=== PATIENT | male | born 1985 | race Hispanic/Latino ===

== ENCOUNTER 2018-10-03 20:45 | Emergency (ER) | payer SELFPAY ==
--- NOTE | 2018-10-03 22:56 | ER ---
Nurse's Notes [facility] Name: Hudson Maharaj Age: 32 yrs Sex: Male : 1985 Arrival Date: 10/03/2018 Time: 20:53 Bed 27 Private MD: Diagnosis: Unspecified injury of head;Alcohol abuse Presentation: 10/03 20:53 Presenting complaint: states: He was at a bar and they said he fell backwards and la1 hit the back of his head. Witnesses states positive LOC. PT smells of ETOH, speech is slurred. Pt is verbally aggressive and posturing with closed fists at staff. Code rider called. Pt uncooperative with staff for triage. Transition of care: patient was not received from another setting of care. Onset of symptoms was October 03, 2018. Risk Assessment: Do you want to hurt yourself or someone else? Unable to obtain. Initial Sepsis Screen:. 20:53 Method Of Arrival: Ambulatory la1 20:53 Acuity: KRISHAN 2 la1 23:04 Initial Sepsis Screen: Does the patient meet any 2 criteria? No. Patient's initial rv sepsis screen is negative. Does the patient have a suspected source of infection? No. Patient's initial sepsis screen is negative. Care prior to arrival: None. Triage Assessment: 23:03 General: Appears in no apparent distress. Behavior is combative. Pain: Denies pain. rv Historical: - Allergies: 21:25 No Known Allergies; bb - Home Meds: 21:25 None [Active]; bb - PMHx: 21:25 None; bb - PSHx: 21:25 Unable to obtain; bb - Immunization history:: Adult Immunizations unknown. - Social history:: Smoking status: unknown Patient uses alcohol, patient/guardian reports recent binge of alcohol consumption. - Ebola Screening: : No symptoms or risks identified at this time. Screenin:29 Abuse screen: Denies threats or abuse. Nutritional screening: No deficits noted. bb Tuberculosis screening: No symptoms or risk factors identified. Fall Risk Fall in past 12 months (25 points). Secondary diagnosis (15 points) positive for ETOH. Mental Status- Overestimates/Forgets Limitations (15 pts.). 21:29 Fall Risk Total Smith Fall Scale indicates High Risk Score (45 or more points). Fall bb prevention measures have been instituted. Side Rails Up X 2 Family Present and informed to notify staff if the need to leave the bedside As available patient and family educated on Fall Prevention Program and Strategies. Assessment: 21:28 Reassessment: pt extremely uncooperative, belligerent, yelling at the staff, refusing bb care, was taken to CT via stretcher accompanied by this RN, Ab MURPHY, and spouse. Pt tolerated CT poorly. 23:02 Reassessment: Patient appears in no apparent distress at this time. patient is rv combative. refused to do further work up. decided to go home. ISAAC Lopez explained to the and the patient the result of the CT scan. 23:04 Reassessment: patient refused to have another set of vital signs taken. rv Vital Signs: 21:25 BP 124 / 87; Pulse 139; Resp 18 S; Pulse Ox 92% on R/A; Weight 117.93 kg (R); Height 5 bb ft. 4 in. (162.56 cm) (R); 21:25 Body Mass Index 44.63 (117.93 kg, 162.56 cm) bb Armond Coma Score: 22:30 Eye Response: spontaneous(4). Verbal Response: oriented(5). Motor Response: obeys pm1 commands(6). Total: 15. ED Course: 20:53 Patient arrived in ED. bb 20:55 Triage completed. la1 20:59 Damián Gr NP is PHCP. pm1 20:59 Dominick Duran MD is Attending Physician. pm1 21:10 Note: CT HEAD COMPLETED, C-SPINE CANCELLED. PT VERY UNCOOPERATIVE AND COMBATIVE. mw3 DAMIÁN CUSTOMER SERVICE COORDINATOR NOTIFIED. . 21:25 Arm band placed on. bb 21:29 Patient has correct armband on for positive identification. Call light in reach. Side bb rails up X2. Adult w/ patient. 22:45 Kendall Fernandez, KATHERINE is Primary Nurse. rv 23:04 No provider procedures requiring assistance completed. Patient did not have IV access rv during this emergency room visit. Administered Medications: No medications were administered Outcome: 23:05 AMA AMA form signed rv 23:05 Condition: good 23:05 Patient left the ED. rv Signatures: Dispatcher [employer] EDMS Rebecca Petersen RN RN bb Attema, Lee, RN RN la1 Damián Gr CUSTOMER SERVICE COORDINATOR CUSTOMER SERVICE COORDINATOR pm1 Millicent Douglass mw3 Kendall Fernandez, RN RN rv Corrections: (The following items were deleted from the chart) 22:02 21:42 In radiology for Head Brain Wo Cont. EDMS mw3
--- NOTE | 2018-10-03 22:56 | EDPHYS ---
Physician Documentation [facility] Name: Hudson Maharaj Age: 32 yrs Sex: Male : 1985 Arrival Date: 10/03/2018 Time: 20:53 Bed 27 Private MD: ED Physician Dominick Duran HPI: 10/03 22:30 This 32 yrs old Male presents to ER via Ambulatory with complaints of head pm1 injury. 22:30 The patient or guardian reports injury. The complaints affect the back of head. Context pm1 of injury: The problem was sustained at a bar or nightclub, resulted from fall from bar stool. Onset: The symptoms/episode began/occurred just prior to arrival. Associated signs and symptoms: Loss of consciousness: This patient experience a loss of consciousness, for an unknown period of time, Pertinent positives: patient admits to or smells of alcohol consumption, Pertinent negatives: nausea, neck pain, vomiting. Severity of symptoms: in the emergency department the symptoms have improved. The patient has not experienced similar symptoms in the past. The patient has not recently seen a physician. Patient at bar and fell off stool and hit the back of his head. Positive LOC. Patient does not want to be here but he was brought in by who would like him to be evaluated. Historical: - Allergies: 21:25 No Known Allergies; bb - Home Meds: 21:25 None [Active]; bb - PMHx: 21:25 None; bb - PSHx: 21:25 Unable to obtain; bb - Immunization history:: Adult Immunizations unknown. - Social history:: Smoking status: unknown Patient uses alcohol, patient/guardian reports recent binge of alcohol consumption. - Ebola Screening: : No symptoms or risks identified at this time. ROS: 22:30 Constitutional: Negative for fever, chills, and weight loss, Eyes: Negative for injury, pm1 pain, redness, and discharge, ENT: Negative for injury, pain, and discharge, Neck: Negative for injury, pain, and swelling, Cardiovascular: Negative for chest pain, palpitations, and edema, Respiratory: Negative for shortness of breath, cough, wheezing, and pleuritic chest pain, Abdomen/GI: Negative for abdominal pain, nausea, vomiting, diarrhea, and constipation, Back: Negative for injury and pain, : Negative for injury, bleeding, discharge, and swelling, MS/Extremity: Negative for injury and deformity, Skin: Negative for injury, rash, and discoloration. 22:30 Neuro: Positive for loss of consciousness, Negative for numbness, tingling, weakness. Exam: 22:30 Constitutional: This is a well developed, well nourished patient who is awake, alert, pm1 and in no acute distress. Head/Face: Normocephalic, atraumatic. Eyes: Pupils equal round and reactive to light, extra-ocular motions intact. Lids and lashes normal. Conjunctiva and sclera are non-icteric and not injected. Cornea within normal limits. Periorbital areas with no swelling, redness, or edema. ENT: Nares patent. No nasal discharge, no septal abnormalities noted. Tympanic membranes are normal and external auditory canals are clear. Oropharynx with no redness, swelling, or masses, exudates, or evidence of obstruction, uvula midline. Mucous membranes moist. Neck: Trachea midline, no thyromegaly or masses palpated, and no cervical lymphadenopathy. Supple, full range of motion without nuchal rigidity, or vertebral point tenderness. No Meningismus. Chest/axilla: Normal chest wall appearance and motion. Nontender with no deformity. No lesions are appreciated. Cardiovascular: Regular rate and rhythm with a normal S1 and S2. No gallops, murmurs, or rubs. Normal PMI, no JVD. No pulse deficits. Respiratory: Lungs have equal breath sounds bilaterally, clear to auscultation and percussion. No rales, rhonchi or wheezes noted. No increased work of breathing, no retractions or nasal flaring. Abdomen/GI: Soft, non-tender, with normal bowel sounds. No distension or tympany. No guarding or rebound. No evidence of tenderness throughout. Back: No spinal tenderness. No costovertebral tenderness. Full range of motion. Skin: Warm, dry with normal turgor. Normal color with no rashes, no lesions, and no evidence of cellulitis. MS/ Extremity: Pulses equal, no cyanosis. Neurovascular intact. Full, normal range of motion. 22:30 Neuro: Orientation: is normal, Motor: is normal, moves all fours. 22:30 Psych: Behavior/mood is aggressive, uncooperative, Affect is animated. Vital Signs: 21:25 BP 124 / 87; Pulse 139; Resp 18 S; Pulse Ox 92% on R/A; Weight 117.93 kg (R); Height 5 bb ft. 4 in. (162.56 cm) (R); 21:25 Body Mass Index 44.63 (117.93 kg, 162.56 cm) bb Armond Coma Score: 22:30 Eye Response: spontaneous(4). Verbal Response: oriented(5). Motor Response: obeys pm1 commands(6). Total: 15. MDM: 20:59 Patient medically screened. pm1 22:30 Data reviewed: vital signs. pm1 22:53 Counseling: I had a detailed discussion with the patient and/or guardian regarding: pm1 radiology results. 22:53 Refusal of service: The patient/guardian displays adequate decision making capability pm1 and despite a detailed discussion of alternatives, benefits, risks, and consequences refuses: all lab tests, Medications, CT scan of cervical spine. 22:53 ED course: is with the patient at bedside and would like to go home following CT pm1 head results. The patient does not want any further work up and she agrees with his decision since he is unwilling to get further test. 10/03 21:04 Order name: EKG - Nurse/Tech pm1 10/03 21:23 Order name: Head Brain Wo Cont EDMS 10/03 21:04 Order name: IV Saline Lock pm1 10/03 21:04 Order name: Labs collected and sent pm1 10/03 21:04 Order name: Urine Dipstick-Ancillary (obtain specimen) pm1 Administered Medications: No medications were administered Disposition: 10/04 01:25 Co-signature as Attending Physician, Dominick Duran MD. pkl Disposition: 10/03/18 22:55 Patient has left against medical advice. Impression: Unspecified injury of head, Alcohol abuse. - Patients states they are going to Home. - Condition is Undetermined. - Discharge Instructions: Finding Treatment for Addiction, Head Injury, Adult, Alcohol Abuse and Nutrition. Follow up: Emergency Department; When: As needed; Reason: Worsening of condition, Recheck today's complaints, Continuance of care, Re-evaluation by your physician. Follow up: Private Physician; When: Upon discharge from the Emergency Department; Reason: Recheck today's complaints, Continuance of care, Re-evaluation by your physician. - Problem is new. - Symptoms have improved. Signatures: Dispatcher [employer] EDRI Dominick Duran MD MD pkl Rebecca Petersen, RN RN bb John Gr, MARKETING ASSISTANT MARKETING ASSISTANT pm1 Kendall Fernandez, KATHERINE RN rv Corrections: (The following items were deleted from the chart) 10/03 21:23 21:07 Head C Spine MPR Wo Con+CT.RAD.BRZ ordered. [facility] EDRI 23:05 22:55 10/03/2018 22:55 Patients has left against medical advice. Impression: rv Unspecified injury of head; Alcohol abuse. Patient states they are going to Home. Condition is Undetermined. Follow up: Emergency Department; When: As needed; Reason: Worsening of condition, Recheck today's complaints, Continuance of care, Re-evaluation by your physician. Follow up: Private Physician; When: Upon discharge from the Emergency Department; Reason: Recheck today's complaints, Continuance of care, Re-evaluation by your physician. Problem is new. Symptoms have improved. pm1
[2018-10-03] MEDS ORDERED: IBUPROFEN 400 MG TAB ONE (23:02)
--- NOTE | 2018-10-04 10:40 | RAD REPORT ---
EXAM DESCRIPTION: CT of the head without contrast CLINICAL HISTORY: Head injury, LOC, ETOH COMPARISON: None available TECHNIQUE: Axial CT of the head obtained from the skull apex to the skull base without contrast. Att empt made to obtain images of the cervical spine however the patient was combative. The images obtain ed are nondiagnostic. FINDINGS: No acute intracranial hemorrhage identified. No mass, mass effect, shift of the midline, a bnormal extra-axial fluid collection or CT evidence of acute ischemic change identified. The ventricu lar system is unremarkable. No acute abnormalities of the supratentorial white matter, basal gangli a, cerebellum, or brainstem. The visualized paranasal sinuses and the mastoids are clear. No skull fracture identified. Visualized orbits and globes are unremarkable. Axial CT images of the cervical spine were obtained however these are nondiagnostic due to severe mot ion artifact. DLP: 1407.4 mGy-cm IMPRESSION: 1. No acute intracranial abnormality identified. 2. Attempted imaging of the cervical spine is nondiagnostic due to severe motion artifact and repor shayna patient combativeness. Repeat CT of the cervical spine would be required to evaluate for acute tr aumatic injury of the cervical spine. This exam was performed according to our departmental dose-optimization program, which includes autom ated exposure control, adjustment of the mA and/or kV according to patient size and/or use of iterati ve reconstruction technique. Electronically signed by: Kobe Hutton 10/03/2018 10:08 PM CDT Due to temporary technical issues with the PACS/Fluency reporting system, reports are being signed by the in house radiologist as a courtesy to ensure prompt reporting. The interpreting radiologist is f ully responsible for the content of the report.
== END 2018-10-03 23:05 | disposition left against medical advice (07) ==
LOC: ER 20:45
DX: F10.10 Alcohol abuse, uncomplicated (principal)
CPT/HCPCS: 70450; 99284

== ENCOUNTER 2024-03-29 06:46 | Emergency (ER) | payer OTHER, SELFPAY ==
--- OUTSIDE RECORDS SUMMARY | 2024-03-29 06:49 | XMS REPORT | Continuity of Care Document ---
Author Name Unknown Address [address] [place] [address] [employer] Address [address] [place] [address] Care Team Providers Care Turkey Pinner Name Role Phone ALICE Attending Clinician Unavailable ALICE Admitting Clinician Unavailable Encounters Start Date/Time End Date/Time Encounter Type Admission Type Attending Clinicians Care Facility Care Department Encounter ID Source 2021-11-19 04:45:00 2021-11-19 04:45:00 Outpatient [facility] [id number] Clari dugan [facility] Program
[2024-03-29] MEDS ORDERED: KETOROLAC 30 MG/ML INJ ONE (07:25)
[2024-03-29 07:34] LABS: Absolute Eosinophils 0.2 K/uL (0-0.5); Absolute Lymphocytes (CBC) 2.3 K/uL (0.7-4.9); Absolute Monocytes 0.4 K/uL (0.1-1.3); Absolute Neutrophil 4.9 K/uL (1.8-8.0); Basophils % 0.4 % (0-1.3); Eosinophils % 2.6 % (0-4.4); Hematocrit 46.3 % (39.6-49.0); Hemoglobin 15.2 g/dL (13.6-17.9); Lymphocytes % 29.6 % (15.3-44.8); MCH 27.3 pg (27.0-35.0); MCHC 32.9 g/dL (32.0-36.0); MCV 82.8 fL (80-100); MPV 8.4 fL (7.6-11.3); Monocytes % 5.1 % (3.3-12.3); Neutrophils % 62.3 % (41.7-73.7); Nucleated Red Blood Cells % 0.1 % (0-0); Platelets 282 thou/uL (152-406); RBC Red Blood Cell Count 5.59 M/uL (4.33-5.43); Red Cell Distribution Width 14.3 % (12.1-15.2)
--- NOTE | 2024-03-29 07:47 | RAD REPORT ---
EXAMINATION: US RIGHT LOWER EXTREMITY VENOUS DOPPLER CLINICAL INDICATION: PAIN RIGHT TECHNIQUE: Complete bilateral duplex sonography of the RIGHT lower extremity veins was performed. The examination included compression for vein patency, color Doppler imaging and flow augmentation in response to distal compression of the distal external iliac, common femoral, femoral, popliteal, tibi al, and great and small saphenous veins. COMPARISON: No prior exam. FINDINGS: Duplex sonography testing of the veins of the RIGHT lower extremity was performed. Color flow imaging shows all veins to be compressible with [id number] color filling. Pulsatile and phasic flow is present within all lower extremity deep and superficial veins examined. IMPRESSION: There is no deep vein or superficial vein thrombosis.
[2024-03-29 07:49] LABS: Specific Gravity > 1.030 (1.005-1.030); Sqamous Epithelial None Seen /HPF (None Seen); Urine Bacteria None Seen /HPF (<20); Urine Bilirubin NEGATIVE (Negative); Urine Blood Negative (Negative); Urine Clarity Clear (Clear); Urine Color Light-Yellow (Yellow); Urine Culture Reflex Order NOT NEEDED; Urine Glucose 4+ (Over) (Negative); Urine Ketones NEGATIVE (Negative); Urine Microscopic Reflex YN ORDER UMIC; Urine Nitrite NEGATIVE (Negative); Urine Protein NEGATIVE (Negative); Urine RBC <5 /HPF (None Seen); Urine Urobilinogen Normal (Normal); Urine WBC <5 /HPF (<5)
[2024-03-29 07:52] LABS: Albumin 3.4 g/dL (3.4-5.0); Albumin/Globulin Ratio 0.9 (1.1-1.8); Bilirubin Total 0.5 mg/dL (0.2-1.0); Protein, Total 7.4 g/dL (6.4-8.2)
--- NOTE | 2024-03-29 08:29 | RAD REPORT ---
EXAMINATION: CT ABDOMEN AND PELVIS WITH CONTRAST CLINICAL INDICATION: lower abd pain, radiates right groin TECHNIQUE: CT abdomen and pelvis was performed, after the administration of IV contrast, as [facility]. Axial, sagittal and coronal reconstructions were obtained. One or more of the following dose reduction techniques were used: Automated exposure control, adjustment of the mA and k V according to patient size, and iterative reconstruction. Unless otherwise specified, incidental findings do not require dedicated imaging follow-up. COMPARISON: No prior exam. FINDINGS: LOWER CHEST: The visualized lung bases are clear. LIVER: Mild fatty liver is present. No focal lesion or biliary dilatation is seen. Grossly unremark able gallbladder. SPLEEN: Normal size. No focal lesion. PANCREAS: No mass, ductal dilation, or harley-pancreatic fluid. ADRENALS: Normal; no mass. KIDNEYS: Normal size and contour. No hydronephrosis. GASTROINTESTINAL TRACT: No evidence of free air, significant intra-abdominal free fluid, bowel obstru ction or abscess. There is mild diverticulosis coli of the sigmoid colon without diverticulitis. APPENDIX: Normal appendix. LYMPH NODES: No lymphadenopathy. MUSCULOSKELETAL: Moderate thoracolumbar scoliosis. ADDITIONAL FINDINGS: None. IMPRESSION: No acute or concerning abnormalities seen in the abdomen or pelvis.
--- NOTE | 2024-03-29 08:56 | ER ---
Nurse's Notes [facility] Name: Hudson Maharaj Age: 38 yrs Sex: Male : 1985 Arrival Date: 03/29/2024 Time: 06:46 Bed 18 Private MD: Diagnosis: Radiculopathy, lumbosacral region;Groin pain Presentation: 03/29 06:49 Chief complaint: Patient states: sudden onset of pain on the side of groin. ha1 06:49 Coronavirus screen: Vaccine status: Patient reports being unvaccinated. Ebola Screen: ha1 No symptoms or risks identified at this time. Initial Sepsis Screen: Does the patient meet any 2 criteria? No. Patient's initial sepsis screen is negative. Does the patient have a suspected source of infection? No. Patient's initial sepsis screen is negative. Risk Assessment: Do you want to hurt yourself or someone else? Patient reports no desire to harm self or others. Onset of symptoms was March 29, 2024. 06:49 Method Of Arrival: Ambulatory 1 06:49 Acuity: KRISHAN 3 ha1 Triage Assessment: 06:49 General: Appears uncomfortable, Behavior is cooperative. Pain: Complains of pain in ha1 groin Pain does not radiate. Pain currently is 6 out of 10 on a pain scale. Quality of pain is described as aching, heavy, pressure, Pain began suddenly. Neuro: Level of Consciousness is awake, alert, obeys commands, Oriented to person, place, time, situation. Cardiovascular: Capillary refill < 3 seconds Patient's skin is warm and dry. Respiratory: Airway is patent Respiratory effort is even, unlabored, Respiratory pattern is regular, symmetrical. GI: Abdomen is round non-distended, obese. Historical: - Allergies: 07:01 No Known Allergies; ha1 - PMHx: 07:01 Diabetes mellitus; ha1 - Immunization history:: Adult Immunizations not up to date. - Infectious Disease History:: Denies. - Social history:: Smoking status: Patient reports the use of cigarette tobacco products, smokes one-half pack cigarettes per day. - Family history:: not pertinent. - Hospitalizations: : No recent hospitalization is reported. Screenin:28 [facility] ED Fall Risk Assessment (Adult) History of falling in the last 3 months, db including since admission No falls in past 3 months (0 pts) Confusion or Disorientation No (0 pts) Intoxicated or Sedated No (0 pts) Impaired Gait No (0 pts) Mobility Assist Device Used No (0 pt) Altered Elimination No (0 pt) Score/Fall Risk Level 0 - 2 = Low Risk Oriented to surroundings, Maintained a safe environment. Abuse screen: Denies threats or abuse. Denies injuries from another. Nutritional screening: No deficits noted. Tuberculosis screening: No symptoms or risk factors identified. Assessment: 07:04 Reassessment: Patient appears in no apparent distress at this time. Patient and/or db family updated on plan of care and expected duration. Pain level reassessed. Patient is alert, oriented x 3, equal unlabored respirations, skin warm/dry/pink. General: Appears in no apparent distress. comfortable, Behavior is calm, cooperative. Neuro: Level of Consciousness is awake, alert, obeys commands, Oriented to person, place, time, situation. 09:15 Reassessment: Patient appears in no apparent distress at this time. Patient and/or db family updated on plan of care and expected duration. Pain level reassessed. Patient is alert, oriented x 3, equal unlabored respirations, skin warm/dry/pink. Reassessment: Patient states feeling better. Patient states symptoms have improved. General: Appears in no apparent distress. comfortable, Behavior is calm, cooperative. Respiratory: Airway is patent Respiratory effort is even, unlabored, Respiratory pattern is regular, symmetrical. Vital Signs: 06:49 BP 122 / 84; Pulse 64; Resp 17 S; Temp 97.1(T); Pulse Ox 100% on R/A; Weight 108.86 kg; ha1 Height 5 ft. 4 in. ; Pain 6/10; 08:53 BP 126 / 72; Pulse 67; Resp 16; Pulse Ox 99% on R/A; db 06:49 Body Mass Index 41.20 (108.86 kg, 162.56 cm) ha1 06:49 Pain Scale: Adult ha1 ED Course: 06:47 Patient arrived in ED. jj6 06:55 Caroline Weinberg, RN is Primary Nurse. kj2 06:57 Dutch Kelly MD is Attending Physician. rn 07:01 Triage completed. ha1 07:04 Arm band placed on Patient placed in an exam room. db 07:24 Initial lab(s) drawn, by me, sent to lab. Inserted saline lock: 20 gauge in right db antecubital area, using aseptic technique. Blood collected. Flushed with 10 mL NS. 07:28 Patient has correct armband on for positive identification. Bed in low position. Call db light in reach. Side rails up X 1. Pulse ox on. NIBP on. Warm blanket given. 07:31 Patient taken to ultrasound. via wheelchair. db 07:43 Extremity Venous Uni Ltd US In Process Unspecified. EDMS 08:15 CT Abd/Pelvis - IV Contrast Only In Process Unspecified. EDMS 09:15 Provided Education on: DISCHARGE AND FOLLOWUP. db 09:15 No provider procedures requiring assistance completed. IV discontinued, intact, db bleeding controlled, No redness/swelling at site. Administered Medications: 07:30 Drug: TORadol - Ketorolac IVP 15 mg IVP once Route: IVP; Site: right antecubital; db 09:03 Follow up: Response: No adverse reaction; Pain is decreased db Medication: 09:15 VIS not applicable for this client. db Outcome: 08:56 Discharge ordered by . rn 09:15 Discharged to home ambulatory, with family, db 09:15 Condition: stable 09:15 Discharge instructions given to patient, family, significant other, Instructed on discharge instructions, follow up and referral plans. 09:15 Prescriptions given X 1, db 09:16 Patient left the ED. db Signatures: Dispatcher [employer] EDMS Dutch Kelly MD MD rn Jeffries, Jennifer jj6 Anya Kelsey RN RN ha1 Alicia Mccollum RN RN db Caroline Weinberg RN RN kj2
--- NOTE | 2024-03-29 08:56 | EDPHYS ---
Physician Documentation [facility] Name: Hudson Maharaj Age: 38 yrs Sex: Male : 1985 Arrival Date: 03/29/2024 Time: 06:46 Bed 18 Private MD: ED Physician Dutch Kelly HPI: 03/29 08:51 This 38 yrs old Male presents to ER via Ambulatory with complaints of Groin rn Pain. 08:51 The patient presents with pain. The complaints affect the right inner thigh. rn 08:52 Onset: The symptoms/episode began/occurred this morning. Modifying factors: The rn symptoms are alleviated by nothing. the symptoms are aggravated by movement. Severity of symptoms: At their worst the symptoms were moderate, in the emergency department the symptoms have improved. The patient has not experienced similar symptoms in the past. The patient has not recently seen a physician. Gout patient reports right groin pain that began this morning. Denies injury or trauma. Got up from seated position and started to have pain. Denies any skin changes or warmth. No fever or chills. No other trouble with right lower extremity other than chronic sciatica on that side. Denies urinary symptoms. Denies testicular pain or swelling. Did report mild right-sided abdominal pain yesterday but got better on its own.. Historical: - Allergies: 07:01 No Known Allergies; ha1 - PMHx: 07:01 Diabetes mellitus; ha1 - Immunization history:: Adult Immunizations not up to date. - Infectious Disease History:: Denies. - Social history:: Smoking status: Patient reports the use of cigarette tobacco products, smokes one-half pack cigarettes per day. - Family history:: not pertinent. - Hospitalizations: : No recent hospitalization is reported. ROS: 08:52 Constitutional: Negative for fever, chills, and weight loss, Cardiovascular: Negative rn for chest pain, palpitations, and edema, Respiratory: Negative for shortness of breath, cough, wheezing, and pleuritic chest pain, Abdomen/GI: Negative for abdominal pain, nausea, vomiting, diarrhea, and constipation, MS/Extremity: + right groin pain Skin: Negative for injury, rash, and discoloration, Neuro: Negative for headache, weakness, numbness, tingling, and seizure, Exam: 08:52 Constitutional: This is a well developed, well nourished patient who is awake, alert, rn and in no acute distress. Cardiovascular: Regular rate and rhythm. No pulse deficits. Respiratory: No increased work of breathing, no retractions or nasal flaring. Abdomen/GI: soft, non-tender, no hernia or mass MS/ Extremity: Pulses equal, no cyanosis. Neuro: Awake and alert, GCS 15, oriented to person, place, time, and situation. Motor strength 5/5 in all extremities. Sensory grossly intact. Normal gait. Vital Signs: 06:49 BP 122 / 84; Pulse 64; Resp 17 S; Temp 97.1(T); Pulse Ox 100% on R/A; Weight 108.86 kg; ha1 Height 5 ft. 4 in. ; Pain 6/10; 08:53 BP 126 / 72; Pulse 67; Resp 16; Pulse Ox 99% on R/A; db 06:49 Body Mass Index 41.20 (108.86 kg, 162.56 cm) ha1 06:49 Pain Scale: Adult ha1 MDM: 06:57 Medical Screening Exam initiated rn 08:52 Differential diagnosis: Hernia, radiculopathy, pinched nerve, neuropathy, early rn cellulitis. Data reviewed: vital signs, nurses notes, lab test result(s), radiologic studies, CT scan, ultrasound, and as a result, I will discharge patient. Counseling: I had a detailed discussion with the patient and/or guardian regarding the historical points, exam findings, and any diagnostic results supporting the discharge/admit diagnosis, lab results, radiology results, the need for outpatient follow up, to return to the emergency department if symptoms worsen or persist or if there are any questions or concerns that arise at home. Special discussion: I discussed with the patient/guardian in detail that at this point there is no indication for admission to the hospital. It is understood, however, that if the symptoms persist or worsen the patient needs to return immediately for re-evaluation. ED course: No acute findings and workup. CT abdomen pelvis without acute finding. Ultrasound right lower extremity negative for DVT. No signs of infection clinically. Normal WBC. Will discharge home as possible radiculopathy or pinched nerve. Will give gabapentin and return precautions.. 03/29 07:18 Order name: CBC with Diff; Complete Time: 08:45 rn 03/29 07:18 Order name: CMP; Complete Time: 08:45 rn 03/29 07:18 Order name: Lipase; Complete Time: 08:45 rn 03/29 07:18 Order name: Urinalysis w/ reflexes; Complete Time: 08:45 rn 03/29 07:18 Order name: CT Abd/Pelvis - IV Contrast Only; Complete Time: 08:45 rn 03/29 07:18 Order name: Extremity Venous Uni Ltd US; Complete Time: 08:45 rn 03/29 07:18 Order name: IV Saline Lock; Complete Time: 07:31 rn 03/29 07:18 Order name: Labs collected and sent; Complete Time: 07:31 rn Administered Medications: 07:30 Drug: TORadol - Ketorolac IVP 15 mg IVP once Route: IVP; Site: right antecubital; db 09:03 Follow up: Response: No adverse reaction; Pain is decreased db Disposition Summary: 03/29/24 08:56 Discharge Ordered Notes: Location: Home rn Problem: new rn Symptoms: have improved rn Condition: Stable rn Diagnosis - Radiculopathy, lumbosacral region rn - Groin pain rn Followup: rn - With: Private Physician - When: As needed - Reason: Recheck today's complaints, Re-evaluation by your physician Discharge Instructions: - Discharge Summary Sheet rn - Lumbosacral Radiculopathy rn - Neuropathic Pain rn - Pinched Nerve rn Forms: - Medication Reconciliation Form rn - Antibiotic aprn - Prescription Opioid Use rn - Patient Portal Instructions rn - Leadership Thank You Letter rn - Work release form db Prescriptions: - gabapentin 100 mg Oral capsule - take 1 capsule ORAL route every 12 hours As needed; 14 capsule; Refills: 0, rn Product Selection Permitted Signatures: Dispatcher [employer] EDDutch Mcadams MD MD rn Ayala, Heidy RN RN ha1 Alicia Mccollum RN RN db Corrections: (The following items were deleted from the chart) 07:18 07:18 Abdomen Pelvis W Con+CT.RAD.BRZ ordered. EDMS EDMS 07:18 07:18 Extremity Venous Uni Ltd+US.RAD.BRZ ordered. EDMS EDMS
[2024-03-29 13:26] VITALS: BP 122/84; TEMP 97.1; O2SAT 100
== END 2024-03-29 09:16 | disposition home or self-care (01) ==
LOC: ER 06:46
DX: M54.17 Radiculopathy, lumbosacral region (principal)
CPT/HCPCS: 36415; 74177; 80053; 81001; 83690; 85025; 93971; 96374; 99285; Q9967